=== PATIENT | female | born 1965 | race American Indian/Alaskan Native ===

== ENCOUNTER 2016-06-30 18:23 | Emergency (ER) | payer MEDICAID ==
--- NOTE | 2016-06-30 22:28 | Emergency Department Report ---
HPI - General Chief Complaint: Skin/Abscess/Foreign Body Time Seen by Provider: 06/30/16 22:21 - HPI HPI: 50-year-old female presents today stating she has a drain that needs to be removed. Patient states that she was in [place] last month when she had a abscess of right perianal region. Patient was seen by Dr. Kingsley Schaefer at [place], [place] and the abscess was incised and drained was put in. Positive for history of abscesses. Denies any drainage or bleeding at this time. Denies fever, chills, nausea, vomiting, chest pain, shortness of breath, abdominal pain. And has history of hypertension and has not been on her medication for 1 month. Patient needs refill Lisinopril/HCTZ 20-25mg 1 tab PO QDAY and Norvasc 10mg PO QDAY. ED Past Medical Hx - Past Medical History Hx Hypertension: Yes Hx Asthma: Yes Hx HIV: Yes Additional medical history: Genital herpes. depression - Surgical History Past Surgical History?: Yes Additional Surgical History: 1990 - Social History Smoking Status: Unknown if ever smoked Substance Use Type: None - Medications Home Medications: Home Medications Medication Instructions Recorded Confirmed Last Taken Type Pravastatin Sodium [Pravastatin] 10 mg PO QHS #30 tablet 04/08/13 05/31/1405/30 20:00 Rx Sertraline [Zoloft] 50 mg PO QDAY #30 tablet 04/08/13 05/31/14 05/30/14 10:00 Rx Efavirenz/Emtricitab/Tenofovir 1 each PO QDAY 05/07/14 05/31/14 05/30/14 20:00 History [Atripla Tablet] Podofilox [Condylox 0.5%] 1 applicatio TP BID #1 tub 05/07/14 05/31/14 05/30/14 20:00 Rx ALBUTEROL Inhaler [ProAir HFA 2 puff IH QID PRN #1 inhalation 05/31/14 Unknown Rx Inhaler] Azithromycin [Zithromax Z-RENZO] 250 mg PO DAILY #6 tablet 05/31/14 Unknown Rx Lisinopril/Hydrochlorothiazide 1 tab PO QDAY 05/31/14 05/31/14 05/30/14 09:00 History [Zestoretic 20-25 mg] Prednisone [Prednisone 5 mg (6-Day 5 mg PO .TAPER #1 tab.ds.pk 05/31/14 Unknown Rx Pack, 21 Tabs)] HYDROcodone/APAP 7.5-325 [[place] 1 each PO Q8HR PRN #15 tablet 03/10/15 Unknown Rx 7.5/325] Lisinopril/Hydrochlorothiazide 1 tab PO QDAY #30 tab 06/30/16 Unknown Rx [Zestoretic 20-25 mg] Naproxen [Naprosyn] 500 mg PO BID #20 tablet 06/30/16 Unknown Rx amLODIPine [Norvasc] 10 mg PO QDAY #30 tablet 06/30/16 Unknown Rx ED Review of Systems ROS: Stated complaint: NUMBNESS IN HAND FOOT SWOLLEN/BUTT PAIN Other details as noted in HPI Constitutional: denies: chills, fever, malaise Eyes: denies: eye pain ENT: denies: ear pain, throat pain, congestion Respiratory: denies: cough, shortness of breath, wheezing Cardiovascular: denies: chest pain, palpitations Endocrine: no symptoms reported Gastrointestinal: denies: abdominal pain, nausea, vomiting Neurological: denies: headache, weakness Physical Exam - Physical Exam Vital Signs: Vital Signs 06/30/16 18:43 Temperature 98.4 F Pulse Rate 97 H Blood Pressure 155/108 O2 Sat by Pulse 100 Oximetry Physical Exam: GENERAL: The patient is well-developed and well-nourished. Patient is in NAD. HEAD: Normocephalic. Atraumatic. CHEST/LUNGS: Clear to auscultation throughout. HEART/CARDIOVASCULAR: Regular rate and rhythm. ABDOMEN: Abdomen is soft, nontender. No guarding or rebound tenderness. BUTTOCKS: A drain noticed of right perianal region. No signs of infection. No erythema, tenderness to palpation. No drainage or bleeding noted. EXTREMITIES: Peripheral pulses intact. Capillary refill less than 2 seconds. NEURO: Alert and oriented x 3. Normal gait. ED Course Vital Signs 06/30/16 18:43 Temperature 98.4 F Pulse Rate 97 H Blood Pressure 155/108 O2 Sat by Pulse 100 Oximetry ED Medical Decision Making - Lab Data Vital Signs 06/30/16 06/30/16 18:43 22:37 Temperature 98.4 F 98.3 F Pulse Rate 97 H 88 Respiratory 18 Rate Blood Pressure 155/108 Blood Pressure 148/99 [Right] O2 Sat by Pulse 100 96 Oximetry - Medical Decision Making 50-year-old female presents today for a drain removal and blood pressure medication refill. Explained to patient that she needs follow-up with a surgeon to have the drain removed. Patient expressed understanding and a referral was provided. Patient is in no acute distress at this time. She will be discharged home and is encouraged to follow up with a primary care provider. She will be sent home on Norvasc, Zestoretic and naproxen and is encouraged to return to the emergency room for any worsening symptoms. Critical care attestation.: If time is entered above; I have spent that time in minutes in the direct care of this critically ill patient, excluding procedure time. ED Disposition Clinical Impression: Encounter for change or removal of drains HTN (hypertension) Qualifiers: Hypertension type: essential hypertension Qualified Code(s): I10 - Essential ( primary) hypertension Disposition: DISCHARGED TO HOME OR SELFCARE Is pt being admited?: No Does the pt Need Aspirin: No Condition: Stable Instructions: Hypertension (ED) Additional Instructions: Follow with primary care provider and surgeon. Return to the emergency department if symptoms worsen. Prescriptions: amLODIPine [Norvasc] 10 mg PO QDAY #30 tablet Lisinopril/Hydrochlorothiazide [Zestoretic 20-25 mg] 1 tab PO QDAY #30 tab Naproxen [Naprosyn] 500 mg PO BID #20 tablet Referrals: JASBIR SHAH III, APRN-JUNI [Primary Care Provider] - 3-5 Days JOSE RAMON DUMONT MD [Staff Physician] - 3-5 Days Forms: Work/School Release Form(ED) Time of Disposition: 22:34
[2016-06-30 22:38] VITALS: BP 148/99
== END 2016-06-30 22:50 | disposition home or self-care (01) ==
LOC: ED 18:23
DX: Z76.0 Encounter for issue of repeat prescription (principal); I10 Essential (primary) hypertension; J45.909 Unspecified asthma, uncomplicated; Z21 Asymptomatic human immunodeficiency virus [HIV] infection status
CPT/HCPCS: 99282

== ENCOUNTER 2016-10-04 23:26 | Emergency (ER) | payer MEDICAID ==
[2016-10-05 00:45] VITALS: BP 152/95
== END 2016-10-05 04:38 | disposition left against medical advice (07) ==
LOC: ED 23:26
DX: N76.0 Acute vaginitis (principal); Z53.21 Procedure and treatment not carried out due to patient leaving prior to being seen by health care provider

== ENCOUNTER 2016-10-05 10:58 | Emergency (ER) | payer MEDICAID ==
[2016-10-05 11:55] VITALS: BP 155/103
--- NOTE | 2016-10-05 12:48 | Emergency Department Report ---
- General Chief complaint: Skin/Abscess/Foreign Body Stated complaint: BOIL Time Seen by Provider: 10/05/16 12:25 Source: patient Mode of arrival: Ambulatory Limitations: No Limitations - History of Present Illness Initial comments: 50-year-old female past medical history hypertension asthma hyperlipidemia presents with complaint of 3 days of right-sided vaginal pain and swelling. Patient denies any fevers chills no nausea no vomiting no dysuria. Patient states that she has had Bartholin's and vaginal abscesses in the past. Patient visibly indicating that she has pain in her groin by pointing at her groin. MD complaint: abscess/boil Onset/Timin -: days(s) Tetanus Up to Date: no Location: genitals Severity: moderate Severity scale (0 -10): 5 Quality: aching Consistency: constant Improves with: none Worsens with: none Context: none - Related Data Home Medications Medication Instructions Recorded Confirmed Last Taken Efavirenz/Emtricitab/Tenofovir 1 each PO QDAY 05/07/14 05/31/14 05/30/14 20:00 [Atripla Tablet] Lisinopril/Hydrochlorothiazide 1 tab PO QDAY 05/31/14 05/31/14 05/30/14 09:00 [Zestoretic 20-25 mg] Previous Rx's Medication Instructions Recorded Last Taken Type Pravastatin Sodium [Pravastatin] 10 mg PO QHS #30 tablet 04/08/13 05/30/14 20: 00 Rx Sertraline [Zoloft] 50 mg PO QDAY #30 tablet 04/08/13 05/30/14 10:00 Rx Podofilox [Condylox 0.5%] 1 applicatio TP BID #1 tub 05/07/14 05/30/14 20:00 Rx ALBUTEROL Inhaler [ProAir HFA 2 puff IH QID PRN #1 inhalation 05/31/14 Unknown Rx Inhaler] Azithromycin [Zithromax Z-RENZO] 250 mg PO DAILY #6 tablet 05/31/14 Unknown Rx Prednisone [Prednisone 5 mg (6-Day 5 mg PO .TAPER #1 tab.ds.pk 05/31/14 Unknown Rx Pack, 21 Tabs)] HYDROcodone/APAP 7.5-325 [[place] 1 each PO Q8HR PRN #15 tablet 03/10/15 Unknown Rx 7.5/325] Lisinopril/Hydrochlorothiazide 1 tab PO QDAY #30 tab 06/30/16 Unknown Rx [Zestoretic 20-25 mg] Naproxen [Naprosyn] 500 mg PO BID #20 tablet 06/30/16 Unknown Rx amLODIPine [Norvasc] 10 mg PO QDAY #30 tablet 06/30/16 Unknown Rx Cephalexin [Keflex] 500 mg PO BID #14 capsule 10/05/16 Unknown Rx Naproxen [Naprosyn TAB] 500 mg PO BID PRN #25 tablet 10/05/16 Unknown Rx Sulfamethoxazole/Trimethoprim 1 each PO BID #14 tablet 10/05/16 Unknown Rx [Bactrim DS TAB] Allergies Allergy/AdvReac Type Severity Reaction Status Date / Time No Known Allergies Allergy Verified 10/05/16 11:49 Abscess Boil HPI - HPI Chief Complaint: Skin/Abscess/Foreign Body Stated Complaint: BOIL Time Seen by Provider: 10/05/16 12:25 Home Medications: Home Medications Medication Instructions Recorded Confirmed Last Taken Efavirenz/Emtricitab/Tenofovir 1 each PO QDAY 05/07/14 05/31/14 05/30/14 20:00 [Atripla Tablet] Lisinopril/Hydrochlorothiazide 1 tab PO QDAY 05/31/14 05/31/14 05/30/14 09:00 [Zestoretic 20-25 mg] Previous Rx's Medication Instructions Recorded Last Taken Type Pravastatin Sodium [Pravastatin] 10 mg PO QHS #30 tablet 04/08/13 05/30/14 20: 00 Rx Sertraline [Zoloft] 50 mg PO QDAY #30 tablet 04/08/13 05/30/14 10:00 Rx Podofilox [Condylox 0.5%] 1 applicatio TP BID #1 tub 05/07/14 05/30/14 20:00 Rx ALBUTEROL Inhaler [ProAir HFA 2 puff IH QID PRN #1 inhalation 05/31/14 Unknown Rx Inhaler] Azithromycin [Zithromax Z-RENZO] 250 mg PO DAILY #6 tablet 05/31/14 Unknown Rx Prednisone [Prednisone 5 mg (6-Day 5 mg PO .TAPER #1 tab.ds.pk 05/31/14 Unknown Rx Pack, 21 Tabs)] HYDROcodone/APAP 7.5-325 [[place] 1 each PO Q8HR PRN #15 tablet 03/10/15 Unknown Rx 7.5/325] Lisinopril/Hydrochlorothiazide 1 tab PO QDAY #30 tab 06/30/16 Unknown Rx [Zestoretic 20-25 mg] Naproxen [Naprosyn] 500 mg PO BID #20 tablet 06/30/16 Unknown Rx amLODIPine [Norvasc] 10 mg PO QDAY #30 tablet 06/30/16 Unknown Rx Cephalexin [Keflex] 500 mg PO BID #14 capsule 10/05/16 Unknown Rx Naproxen [Naprosyn TAB] 500 mg PO BID PRN #25 tablet 10/05/16 Unknown Rx Sulfamethoxazole/Trimethoprim 1 each PO BID #14 tablet 10/05/16 Unknown Rx [Bactrim DS TAB] Allergies/Adverse Reactions: Allergies Allergy/AdvReac Type Severity Reaction Status Date / Time No Known Allergies Allergy Verified 10/05/16 11:49 ED Review of Systems ROS: Stated complaint: BOIL Other details as noted in HPI Constitutional: denies: chills, fever Eyes: denies: eye pain, eye discharge, vision change ENT: denies: ear pain, throat pain Respiratory: denies: cough, shortness of breath, wheezing Cardiovascular: denies: chest pain, palpitations Endocrine: no symptoms reported Gastrointestinal: denies: abdominal pain, nausea, diarrhea Genitourinary: other (right labial abscess). denies: urgency, dysuria, discharge Musculoskeletal: denies: back pain, joint swelling, arthralgia Skin: denies: rash, lesions Neurological: denies: headache, weakness, paresthesias Psychiatric: denies: anxiety, depression Hematological/Lymphatic: denies: easy bleeding, easy bruising ED Past Medical Hx - Past Medical History Hx Hypertension: Yes Hx Asthma: Yes Hx HIV: Yes Additional medical history: Genital herpes. depression. HIGH CHOLESTEROL - Surgical History Additional Surgical History: 1990. "SURGERIES FOR BOILS" - Social History Smoking Status: Current Every Day Smoker Substance Use Type: Prescribed - Medications Home Medications: Home Medications Medication Instructions Recorded Confirmed Last Taken Type Pravastatin Sodium [Pravastatin] 10 mg PO QHS #30 tablet 04/08/13 05/31/1405/30 20:00 Rx Sertraline [Zoloft] 50 mg PO QDAY #30 tablet 04/08/13 05/31/14 05/30/14 10:00 Rx Efavirenz/Emtricitab/Tenofovir 1 each PO QDAY 05/07/14 05/31/14 05/30/14 20:00 History [Atripla Tablet] Podofilox [Condylox 0.5%] 1 applicatio TP BID #1 tub 05/07/14 05/31/14 05/30/14 20:00 Rx ALBUTEROL Inhaler [ProAir HFA 2 puff IH QID PRN #1 inhalation 05/31/14 Unknown Rx Inhaler] Azithromycin [Zithromax Z-RENZO] 250 mg PO DAILY #6 tablet 05/31/14 Unknown Rx Lisinopril/Hydrochlorothiazide 1 tab PO QDAY 05/31/14 05/31/14 05/30/14 09:00 History [Zestoretic 20-25 mg] Prednisone [Prednisone 5 mg (6-Day 5 mg PO .TAPER #1 tab.ds.pk 05/31/14 Unknown Rx Pack, 21 Tabs)] HYDROcodone/APAP 7.5-325 [[place] 1 each PO Q8HR PRN #15 tablet 03/10/15 Unknown Rx 7.5/325] Lisinopril/Hydrochlorothiazide 1 tab PO QDAY #30 tab 06/30/16 Unknown Rx [Zestoretic 20-25 mg] Naproxen [Naprosyn] 500 mg PO BID #20 tablet 06/30/16 Unknown Rx amLODIPine [Norvasc] 10 mg PO QDAY #30 tablet 06/30/16 Unknown Rx Cephalexin [Keflex] 500 mg PO BID #14 capsule 10/05/16 Unknown Rx Naproxen [Naprosyn TAB] 500 mg PO BID PRN #25 tablet 10/05/16 Unknown Rx Sulfamethoxazole/Trimethoprim 1 each PO BID #14 tablet 10/05/16 Unknown Rx [Bactrim DS TAB] ED Physical Exam - General Limitations: No Limitations General appearance: alert, in no apparent distress - Head Head exam: Present: atraumatic, normocephalic - Eye Eye exam: Present: normal appearance, PERRL, EOMI - ENT ENT exam: Present: mucous membranes moist - Neck Neck exam: Present: normal inspection - Respiratory Respiratory exam: Present: normal lung sounds bilaterally. Absent: respiratory distress - Cardiovascular Cardiovascular Exam: Present: regular rate, normal rhythm. Absent: systolic murmur, diastolic murmur, rubs, gallop - GI/Abdominal GI/Abdominal exam: Present: soft, normal bowel sounds - External exam: Present: swelling (visible right labial abscess on a external inspection) Speculum exam: Present: normal speculum exam - Extremities Exam Extremities exam: Present: normal inspection - Back Exam Back exam: Present: normal inspection - Neurological Exam Neurological exam: Present: alert, oriented X3 - Psychiatric Psychiatric exam: Present: normal affect, normal mood - Skin Skin exam: Present: warm, dry, intact, normal color. Absent: rash ED Course Vital Signs 10/05/16 11:53 Temperature 97.8 F Pulse Rate 93 H Respiratory 18 Rate Blood Pressure 155/103 O2 Sat by Pulse 96 Oximetry ED Medical Decision Making - Medical Decision Making A/P: Right side vaginal/labial abscess 1-immediately after I began assessing the patient patient out right stated that she is not interested in incision or drainage if I think it is an abscess. Patient stated that she did not want to have a pelvic exam done either. I offered the patient to be seen by a female clinical provider and patient stated that it did not matter to her, she states she want sto f/u with her private [employer]. Pt only allowing me to do an external inspection. I had a female technology applications teacher at bedside (kashif) present during this interaction and discussion with he patient. Pt has a golf ball sized mass on right external labial region to the right of vaginal orifice w/ some surrounding erythema, has appearance of abscess w/ cellulitis 2-I explained to the patient that the treatment for an abscess is incision and drainage. The patient reiterated that she knows this but is unwilling to do an incision and drainage, only interested in antibiotics and pain medicine. Patient states that she will call for a follow-up appointment with her [employer]HOLE BU[employer]DER this week. I explained to the patient that while I can provide her with antibiotics and anti-inflammatories that an abscess with surrounding cellulitis and spread to further tissues and cause damage to her reproductive tissues and potentially can lead to sepsis and . Patient stated that she understood this but is unwilling to allow me to perform incision and drainage on her abscess. Patient was awake alert and oriented 3 when I discussed this with her. Nurse present and aware for AMA conversation 3-Bactrim and Keflex twice a day 7 days. Naproxen when necessary for pain 4-I provided [employer] referral information on patient's discharge paperwork 5- patient signed out AGAINST MEDICAL ADVICE Critical care attestation.: If time is entered above; I have spent that time in minutes in the direct care of this critically ill patient, excluding procedure time. ED Disposition Clinical Impression: Abscess of vagina Disposition: LEFT AGAINST MEDICAL ADVICE Is pt being admited?: No Does the pt Need Aspirin: No Condition: Stable Instructions: Abscess (ED), Against Medical Advice (ED) Prescriptions: Cephalexin [Keflex] 500 mg PO BID #14 capsule Naproxen [Naprosyn TAB] 500 mg PO BID PRN #25 tablet PRN Reason: Pain Sulfamethoxazole/Trimethoprim [Bactrim DS TAB] 1 each PO BID #14 tablet Referrals: REX ALEXANDRE MD [Staff Physician] - 3-5 Days [facility] [Provider Group] - 3-5 Days Forms: Work/School Release Form(ED), AMA Form Time of Disposition: 12:57
== END 2016-10-05 13:11 | disposition left against medical advice (07) ==
LOC: ED 10:58
DX: N76.0 Acute vaginitis (principal); I10 Essential (primary) hypertension; J45.909 Unspecified asthma, uncomplicated; F17.200 Nicotine dependence, unspecified, uncomplicated
CPT/HCPCS: 99282

== ENCOUNTER 2017-06-18 00:28 | Emergency (ER) | payer MEDICAID ==
[2017-06-18 00:40] VITALS: BP 131/89
[2017-06-18] MEDS ORDERED: BENADRYL PO ONE (04:11)
[2017-06-18] MEDS ORDERED: DECADRON IM ONE (04:11)
--- NOTE | 2017-06-18 04:21 | Emergency Department Report ---
ED Allergic Reaction HPI - General Chief complaint: Extremity Injury, Upper Stated complaint: BODY ACHE Time Seen by Provider: 06/18/17 03:39 Source: patient Mode of arrival: Ambulatory Limitations: No Limitations - History of Present Illness Initial Comments: This is a 51 y.o. female presents with rash under right breast and itching all over from pain shot 6 days ago. Patient reports going to pain management Monday and receiving a pain shot in right clavicle area at [facility] management clinic [facility]. States she was sleep when they did it and not sure what medication was given. The next day she began to itch and noticed bruising under right breast. States the shots are for nerve damage in right hand but they are treating different areas as well. Denies difficulty swallowing, SOB, chest pain , and swelling. MD Complaint: allergic reaction -: Gradual Exposure: medication (unknown medication given at pain management) Symptoms: rash (rash under right breast), itching (generalized itching). denies : facial swelling, lip swelling, difficulty swallowing, difficulty breathing, orolingual swelling, hoarseness, syncopy, dizziness, nausea, vomiting, other, abdominal pain Severity: mild Treatment Prior to Arrival: none Previous Allergy History: none - Related Data Home Medications Medication Instructions Recorded Confirmed Last Taken Efavirenz/Emtricitab/Tenofovir 1 each PO QDAY 05/07/14 05/31/14 05/30/14 20:00 [Atripla Tablet] Lisinopril/Hydrochlorothiazide 1 tab PO QDAY 05/31/14 05/31/14 05/30/14 09:00 [Zestoretic 20-25 mg] Previous Rx's Medication Instructions Recorded Last Taken Type Pravastatin Sodium [Pravastatin] 10 mg PO QHS #30 tablet 04/08/13 05/30/14 20: 00 Rx Sertraline [Zoloft] 50 mg PO QDAY #30 tablet 04/08/13 05/30/14 10:00 Rx Podofilox [Condylox 0.5%] 1 applicatio TP BID #1 tub 05/07/14 05/30/14 20:00 Rx ALBUTEROL Inhaler [ProAir HFA 2 puff IH QID PRN #1 inhalation 05/31/14 Unknown Rx Inhaler] Azithromycin [Zithromax Z-RENZO] 250 mg PO DAILY #6 tablet 05/31/14 Unknown Rx Prednisone [Prednisone 5 mg (6-Day 5 mg PO .TAPER #1 tab.ds.pk 05/31/14 Unknown Rx Pack, 21 Tabs)] HYDROcodone/APAP 7.5-325 [[place] 1 each PO Q8HR PRN #15 tablet 03/10/15 Unknown Rx 7.5/325] Lisinopril/Hydrochlorothiazide 1 tab PO QDAY #30 tab 06/30/16 Unknown Rx [Zestoretic 20-25 mg] Naproxen [Naprosyn] 500 mg PO BID #20 tablet 06/30/16 Unknown Rx amLODIPine [Norvasc] 10 mg PO QDAY #30 tablet 06/30/16 Unknown Rx Cephalexin [Keflex] 500 mg PO BID #14 capsule 10/05/16 Unknown Rx Naproxen [Naprosyn TAB] 500 mg PO BID PRN #25 tablet 10/05/16 Unknown Rx Sulfamethoxazole/Trimethoprim 1 each PO BID #14 tablet 10/05/16 Unknown Rx [Bactrim DS TAB] Metoclopramide HCl [Reglan TAB] 5 mg PO TIDAC #15 tablet 06/18/17 Unknown Rx Prednisone [predniSONE 5 mg (6-Day 5 mg PO .TAPER #1 tab.ds.pk 06/18/17 Unknown Rx Pack, 21 Tabs)] Allergies Allergy/AdvReac Type Severity Reaction Status Date / Time No Known Allergies Allergy Verified 03/30/17 09:15 ED Review of Systems ROS: Stated complaint: BODY ACHE Other details as noted in HPI Constitutional: denies: chills, fever Respiratory: denies: cough, shortness of breath, wheezing Cardiovascular: denies: chest pain, palpitations Gastrointestinal: denies: abdominal pain, nausea, diarrhea Skin: rash (under right breast) ED Past Medical Hx - Past Medical History Previous Medical History?: Yes Hx Hypertension: Yes Hx Asthma: Yes Hx HIV: Yes Additional medical history: Genital herpes. depression. HIGH CHOLESTEROL - Surgical History Past Surgical History?: Yes Additional Surgical History: 1990. "SURGERIES FOR BOILS" - Social History Smoking Status: Current Every Day Smoker Substance Use Type: None - Medications Home Medications: Home Medications Medication Instructions Recorded Confirmed Last Taken Type Pravastatin Sodium [Pravastatin] 10 mg PO QHS #30 tablet 04/08/13 05/31/1405/30 20:00 Rx Sertraline [Zoloft] 50 mg PO QDAY #30 tablet 04/08/13 05/31/14 05/30/14 10:00 Rx Efavirenz/Emtricitab/Tenofovir 1 each PO QDAY 05/07/14 05/31/14 05/30/14 20:00 History [Atripla Tablet] Podofilox [Condylox 0.5%] 1 applicatio TP BID #1 tub 05/07/14 05/31/14 05/30/14 20:00 Rx ALBUTEROL Inhaler [ProAir HFA 2 puff IH QID PRN #1 inhalation 05/31/14 Unknown Rx Inhaler] Azithromycin [Zithromax Z-RENZO] 250 mg PO DAILY #6 tablet 05/31/14 Unknown Rx Lisinopril/Hydrochlorothiazide 1 tab PO QDAY 05/31/14 05/31/14 05/30/14 09:00 History [Zestoretic 20-25 mg] Prednisone [Prednisone 5 mg (6-Day 5 mg PO .TAPER #1 tab.ds.pk 05/31/14 Unknown Rx Pack, 21 Tabs)] HYDROcodone/APAP 7.5-325 [[place] 1 each PO Q8HR PRN #15 tablet 03/10/15 Unknown Rx 7.5/325] Lisinopril/Hydrochlorothiazide 1 tab PO QDAY #30 tab 06/30/16 Unknown Rx [Zestoretic 20-25 mg] Naproxen [Naprosyn] 500 mg PO BID #20 tablet 06/30/16 Unknown Rx amLODIPine [Norvasc] 10 mg PO QDAY #30 tablet 06/30/16 Unknown Rx Cephalexin [Keflex] 500 mg PO BID #14 capsule 10/05/16 Unknown Rx Naproxen [Naprosyn TAB] 500 mg PO BID PRN #25 tablet 10/05/16 Unknown Rx Sulfamethoxazole/Trimethoprim 1 each PO BID #14 tablet 10/05/16 Unknown Rx [Bactrim DS TAB] Metoclopramide HCl [Reglan TAB] 5 mg PO TIDAC #15 tablet 06/18/17 Unknown Rx Prednisone [predniSONE 5 mg (6-Day 5 mg PO .TAPER #1 tab.ds.pk 06/18/17 Unknown Rx Pack, 21 Tabs)] ED Physical Exam - General Limitations: No Limitations General appearance: alert, in no apparent distress - ENT ENT exam: Present: normal orophraynx, mucous membranes moist, TM's normal bilaterally, normal external ear exam - Respiratory Respiratory exam: Present: normal lung sounds bilaterally. Absent: respiratory distress - Cardiovascular Cardiovascular Exam: Present: regular rate, normal rhythm. Absent: systolic murmur, diastolic murmur, rubs, gallop - Neurological Exam Neurological exam: Present: alert, oriented X3, normal gait - Skin Skin exam: Present: warm, dry, intact, normal color, urticaria (erythematous, macular rash under right breast). Absent: cyanosis, diaphoretic, erythema, vesicles, petechiae, pallor, abrasion, ecchymosis ED Course Vital Signs 06/18/17 00:33 Temperature 97.9 F Pulse Rate 102 H Respiratory 17 Rate Blood Pressure 131/89 O2 Sat by Pulse 98 Oximetry ED Medical Decision Making - Medical Decision Making This is a 51 y.o. female presents with rash under right breast and itching on back from pain shot. States she went to pain management on Monday and receive a pain shot around right clavicle area while under anesthesia for pain. The next day she began to itch and saw a rash under right breast. Given dexamethasone 8 mg IM in ER. Given benadryl 25 mg po once in ER. Discharged home on prednisone taper, reglan, continue benadryl. Follow up with PCP and pain management. Critical care attestation.: If time is entered above; I have spent that time in minutes in the direct care of this critically ill patient, excluding procedure time. ED Disposition Clinical Impression: Allergic reaction caused by a drug Qualifiers: Encounter type: initial encounter Qualified Code(s): T78.40XA - Allergy, unspecified, initial encounter Disposition: - TO HOME OR SELFCARE Is pt being admited?: No Does the pt Need Aspirin: No Condition: Stable Instructions: Allergies (ED), Urticaria (ED) Additional Instructions: Continue taking benadryl for itching. Follow up with Primary Care Provider. Return to Pain Management in 24-48 hours. Prescriptions: Metoclopramide HCl [Reglan TAB] 5 mg PO TIDAC #15 tablet Prednisone [predniSONE 5 mg (6-Day Pack, 21 Tabs)] 5 mg PO .TAPER #1 tab.ds.pk Referrals: [facility] [Outside] - 3-5 Days [facility] [Outside] - 3-5 Days Time of Disposition: 05:37 Print Language: WOLOF
== END 2017-06-18 05:44 | disposition home or self-care (01) ==
LOC: ED 00:28
DX: T78.40XA Allergy, unspecified, initial encounter (principal); I10 Essential (primary) hypertension; J45.909 Unspecified asthma, uncomplicated; F32.9 Major depressive disorder, single episode, unspecified; E78.00 Pure hypercholesterolemia, unspecified; F17.200 Nicotine dependence, unspecified, uncomplicated; Z21 Asymptomatic human immunodeficiency virus [HIV] infection status
CPT/HCPCS: 96372; 99282; J1100

== ENCOUNTER 2017-06-22 17:13 | Emergency (ER) | payer MEDICAID ==
[2017-06-22] MEDS ORDERED: TYLENOL #3 PO ONE (20:36)
[2017-06-22] MEDS ORDERED: CATAPRES PO ONE (20:51)
[2017-06-22 21:08] LABS: Hematocrit 38.1 % (30.3-42.9); Hemoglobin 12.8 gm/dl (10.1-14.3); Mean Corpuscular HGB Conc 34 % (30-34); Mean Corpuscular Hemoglobin 31 pg (28-32); Mean Corpuscular Volume 93 fl (79-97); Platelet Count 212 K/mm3 (140-440); Red Blood Count 4.09 M/mm3 (3.65-5.03); Red Cell Distribution Width 14.1 % (13.2-15.2)
[2017-06-22 21:29] LABS: Alanine Aminotransferase 38 units/L (7-56); Albumin 3.9 g/dL (3.9-5); BUN/Creatinine Ratio 42; Blood Urea Nitrogen 25 mg/dL (7-17); Calcium 9.1 mg/dL (8.4-10.2); Hemolysis Index 10
[2017-06-22] MEDS ORDERED: ZOVIRAX PO ONE (21:31)
--- NOTE | 2017-06-22 21:31 | Emergency Department Report ---
- General Chief complaint: Skin Rash Stated complaint: SHINGLES Time Seen by Provider: 06/22/17 19:56 Source: patient Mode of arrival: Ambulatory Limitations: No Limitations - History of Present Illness Initial comments: This is a 51-year-old female nontoxic, well nourished in appearance, no acute signs of distress presents to the ED with c/o of right-sided back rash x1 day. Patient describes rash as pain. Patient stated has history of diagnosed shingles to right breast dermatology. Patient stated this is the same symptoms that she developed but now on the right dermatology back region. Patient denies any chest pain, shortness of breath, fever, chills, nausea, vomiting, headache or stiff neck. Patient denies any itching or swelling. Patient denies any allergies. Past medical history includes HIV, hypertension, and asthma. Patient stated her last CD4 count was above 200. Patient stated she is out of her current medications are blood pressure that she currently takes amlodipine daily 10 mg and lisinopril/hydrochlorothiazide 20-25 mg daily. MD complaint: rash -: days(s) (1) Location: back Severity: mild Severity scale (0 -10): 8 Quality: aching Consistency: constant Improves with: none Worsens with: none Context: none Associated symptoms: denies other symptoms Treatments Prior to Arrival: none - Related Data Home Medications Medication Instructions Recorded Confirmed Last Taken Efavirenz/Emtricitab/Tenofovir 1 each PO QDAY 05/07/14 05/31/14 05/30/14 20:00 [Atripla Tablet] Lisinopril/Hydrochlorothiazide 1 tab PO QDAY 05/31/14 05/31/14 05/30/14 09:00 [Zestoretic 20-25 mg] Previous Rx's Medication Instructions Recorded Last Taken Type Pravastatin Sodium [Pravastatin] 10 mg PO QHS #30 tablet 04/08/13 05/30/14 20: 00 Rx Sertraline [Zoloft] 50 mg PO QDAY #30 tablet 04/08/13 05/30/14 10:00 Rx Podofilox [Condylox 0.5%] 1 applicatio TP BID #1 tub 05/07/14 05/30/14 20:00 Rx ALBUTEROL Inhaler [ProAir HFA 2 puff IH QID PRN #1 inhalation 05/31/14 Unknown Rx Inhaler] Azithromycin [Zithromax Z-RENZO] 250 mg PO DAILY #6 tablet 05/31/14 Unknown Rx Prednisone [Prednisone 5 mg (6-Day 5 mg PO .TAPER #1 tab.ds.pk 05/31/14 Unknown Rx Pack, 21 Tabs)] HYDROcodone/APAP 7.5-325 [[place] 1 each PO Q8HR PRN #15 tablet 03/10/15 Unknown Rx 7.5/325] Lisinopril/Hydrochlorothiazide 1 tab PO QDAY #30 tab 06/30/16 Unknown Rx [Zestoretic 20-25 mg] Naproxen [Naprosyn] 500 mg PO BID #20 tablet 06/30/16 Unknown Rx amLODIPine [Norvasc] 10 mg PO QDAY #30 tablet 06/30/16 Unknown Rx Cephalexin [Keflex] 500 mg PO BID #14 capsule 10/05/16 Unknown Rx Naproxen [Naprosyn TAB] 500 mg PO BID PRN #25 tablet 10/05/16 Unknown Rx Sulfamethoxazole/Trimethoprim 1 each PO BID #14 tablet 10/05/16 Unknown Rx [Bactrim DS TAB] Metoclopramide HCl [Reglan TAB] 5 mg PO TIDAC #15 tablet 06/18/17 Unknown Rx Prednisone [predniSONE 5 mg (6-Day 5 mg PO .TAPER #1 tab.ds.pk 06/18/17 Unknown Rx Pack, 21 Tabs)] Acyclovir 800 mg PO 5XD 10 Days tablet 06/22/17 Unknown Rx Lisinopril/Hydrochlorothiazide 1 tab PO QDAY #30 tab 06/22/17 Unknown Rx [Zestoretic 20-25 mg] amLODIPine [Norvasc] 10 mg PO DAILY #30 tab 06/22/17 Unknown Rx traMADol [Ultram] 50 mg PO Q6HR PRN #12 tablet 06/22/17 Unknown Rx Allergies Allergy/AdvReac Type Severity Reaction Status Date / Time No Known Allergies Allergy Verified 03/30/17 09:15 Abscess Boil HPI - HPI Chief Complaint: Skin Rash Stated Complaint: SHINGLES Time Seen by Provider: 06/22/17 19:56 Home Medications: Home Medications Medication Instructions Recorded Confirmed Last Taken Efavirenz/Emtricitab/Tenofovir 1 each PO QDAY 05/07/14 05/31/14 05/30/14 20:00 [Atripla Tablet] Lisinopril/Hydrochlorothiazide 1 tab PO QDAY 05/31/14 05/31/14 05/30/14 09:00 [Zestoretic 20-25 mg] Previous Rx's Medication Instructions Recorded Last Taken Type Pravastatin Sodium [Pravastatin] 10 mg PO QHS #30 tablet 04/08/13 05/30/14 20: 00 Rx Sertraline [Zoloft] 50 mg PO QDAY #30 tablet 04/08/13 05/30/14 10:00 Rx Podofilox [Condylox 0.5%] 1 applicatio TP BID #1 tub 05/07/14 05/30/14 20:00 Rx ALBUTEROL Inhaler [ProAir HFA 2 puff IH QID PRN #1 inhalation 05/31/14 Unknown Rx Inhaler] Azithromycin [Zithromax Z-RENZO] 250 mg PO DAILY #6 tablet 05/31/14 Unknown Rx Prednisone [Prednisone 5 mg (6-Day 5 mg PO .TAPER #1 tab.ds.pk 05/31/14 Unknown Rx Pack, 21 Tabs)] HYDROcodone/APAP 7.5-325 [[place] 1 each PO Q8HR PRN #15 tablet 03/10/15 Unknown Rx 7.5/325] Lisinopril/Hydrochlorothiazide 1 tab PO QDAY #30 tab 06/30/16 Unknown Rx [Zestoretic 20-25 mg] Naproxen [Naprosyn] 500 mg PO BID #20 tablet 06/30/16 Unknown Rx amLODIPine [Norvasc] 10 mg PO QDAY #30 tablet 06/30/16 Unknown Rx Cephalexin [Keflex] 500 mg PO BID #14 capsule 10/05/16 Unknown Rx Naproxen [Naprosyn TAB] 500 mg PO BID PRN #25 tablet 10/05/16 Unknown Rx Sulfamethoxazole/Trimethoprim 1 each PO BID #14 tablet 10/05/16 Unknown Rx [Bactrim DS TAB] Metoclopramide HCl [Reglan TAB] 5 mg PO TIDAC #15 tablet 06/18/17 Unknown Rx Prednisone [predniSONE 5 mg (6-Day 5 mg PO .TAPER #1 tab.ds.pk 06/18/17 Unknown Rx Pack, 21 Tabs)] Acyclovir 800 mg PO 5XD 10 Days tablet 06/22/17 Unknown Rx Lisinopril/Hydrochlorothiazide 1 tab PO QDAY #30 tab 06/22/17 Unknown Rx [Zestoretic 20-25 mg] amLODIPine [Norvasc] 10 mg PO DAILY #30 tab 06/22/17 Unknown Rx traMADol [Ultram] 50 mg PO Q6HR PRN #12 tablet 06/22/17 Unknown Rx Allergies/Adverse Reactions: Allergies Allergy/AdvReac Type Severity Reaction Status Date / Time No Known Allergies Allergy Verified 03/30/17 09:15 ED Review of Systems ROS: Stated complaint: SHINGLES Other details as noted in HPI Constitutional: denies: chills, fever Eyes: denies: eye pain, eye discharge, vision change ENT: denies: ear pain, throat pain Respiratory: denies: cough, shortness of breath, wheezing Cardiovascular: denies: chest pain, palpitations Endocrine: no symptoms reported Gastrointestinal: denies: abdominal pain, nausea, diarrhea Genitourinary: denies: urgency, dysuria, discharge Musculoskeletal: denies: back pain, joint swelling, arthralgia Skin: rash. denies: lesions Neurological: denies: headache, weakness, paresthesias Psychiatric: denies: anxiety, depression Hematological/Lymphatic: denies: easy bleeding, easy bruising ED Past Medical Hx - Past Medical History Hx Hypertension: Yes Hx Asthma: Yes Hx HIV: Yes Additional medical history: Genital herpes. depression. HIGH CHOLESTEROL - Surgical History Additional Surgical History: 1990. "[facility] [employer] BO[employer]S" - Social History Smoking Status: Current Every Day Smoker Substance Use Type: None - Medications Home Medications: Home Medications Medication Instructions Recorded Confirmed Last Taken Type Pravastatin Sodium [Pravastatin] 10 mg PO QHS #30 tablet 04/08/13 05/31/1405/30 20:00 Rx Sertraline [Zoloft] 50 mg PO QDAY #30 tablet 04/08/13 05/31/14 05/30/14 10:00 Rx Efavirenz/Emtricitab/Tenofovir 1 each PO QDAY 05/07/14 05/31/14 05/30/14 20:00 History [Atripla Tablet] Podofilox [Condylox 0.5%] 1 applicatio TP BID #1 tub 05/07/14 05/31/14 05/30/14 20:00 Rx ALBUTEROL Inhaler [ProAir HFA 2 puff IH QID PRN #1 inhalation 05/31/14 Unknown Rx Inhaler] Azithromycin [Zithromax Z-RENZO] 250 mg PO DAILY #6 tablet 05/31/14 Unknown Rx Lisinopril/Hydrochlorothiazide 1 tab PO QDAY 05/31/14 05/31/14 05/30/14 09:00 History [Zestoretic 20-25 mg] Prednisone [Prednisone 5 mg (6-Day 5 mg PO .TAPER #1 tab.ds.pk 05/31/14 Unknown Rx Pack, 21 Tabs)] HYDROcodone/APAP 7.5-325 [[place] 1 each PO Q8HR PRN #15 tablet 03/10/15 Unknown Rx 7.5/325] Lisinopril/Hydrochlorothiazide 1 tab PO QDAY #30 tab 06/30/16 Unknown Rx [Zestoretic 20-25 mg] Naproxen [Naprosyn] 500 mg PO BID #20 tablet 06/30/16 Unknown Rx amLODIPine [Norvasc] 10 mg PO QDAY #30 tablet 06/30/16 Unknown Rx Cephalexin [Keflex] 500 mg PO BID #14 capsule 10/05/16 Unknown Rx Naproxen [Naprosyn TAB] 500 mg PO BID PRN #25 tablet 10/05/16 Unknown Rx Sulfamethoxazole/Trimethoprim 1 each PO BID #14 tablet 10/05/16 Unknown Rx [Bactrim DS TAB] Metoclopramide HCl [Reglan TAB] 5 mg PO TIDAC #15 tablet 06/18/17 Unknown Rx Prednisone [predniSONE 5 mg (6-Day 5 mg PO .TAPER #1 tab.ds.pk 06/18/17 Unknown Rx Pack, 21 Tabs)] Acyclovir 800 mg PO 5XD 10 Days tablet 06/22/17 Unknown Rx Lisinopril/Hydrochlorothiazide 1 tab PO QDAY #30 tab 06/22/17 Unknown Rx [Zestoretic 20-25 mg] amLODIPine [Norvasc] 10 mg PO DAILY #30 tab 06/22/17 Unknown Rx traMADol [Ultram] 50 mg PO Q6HR PRN #12 tablet 06/22/17 Unknown Rx ED Physical Exam - General Limitations: No Limitations General appearance: alert, in no apparent distress - Head Head exam: Present: atraumatic, normocephalic - Eye Eye exam: Present: normal appearance - ENT ENT exam: Present: mucous membranes moist - Neck Neck exam: Present: normal inspection - Respiratory Respiratory exam: Present: normal lung sounds bilaterally. Absent: respiratory distress - Cardiovascular Cardiovascular Exam: Present: regular rate, normal rhythm, normal heart sounds. Absent: tachycardia, irregular rhythm, systolic murmur, diastolic murmur, rubs , gallop - GI/Abdominal GI/Abdominal exam: Present: soft, normal bowel sounds. Absent: distended, tenderness, guarding, rebound, rigid, diminished bowel sounds - Rectal Rectal exam: Present: deferred - Extremities Exam Extremities exam: Present: normal inspection, full ROM, normal capillary refill. Absent: tenderness, pedal edema, joint swelling, calf tenderness - Back Exam Back exam: Present: normal inspection, full ROM. Absent: tenderness, CVA tenderness (R), CVA tenderness (L), muscle spasm, paraspinal tenderness, vertebral tenderness, rash noted - Expanded Back Exam Expanded 1 - 4 cm vesicular lesion with pustular and tenderness to touch to one right back dermatome region - Neurological Exam Neurological exam: Present: alert, oriented X3, CN II-XII intact, normal gait, reflexes normal - Psychiatric Psychiatric exam: Present: normal affect, normal mood - Skin Skin exam: Present: warm, dry, intact, normal color, rash ED Course Vital Signs 06/22/17 06/22/17 17:41 21:00 Temperature 97.9 F Pulse Rate 59 L 88 Respiratory 18 Rate Blood Pressure 183/119 178/120 O2 Sat by Pulse 97 Oximetry - Reevaluation(s) Reevaluation #1: 06/22/17 21:48 Patient is speaking in full sentences with no signs of distress noted. - Consultations Consultation #1: 06/22/17 21:49 Dr. cMintosh has been consulted about patient history, physical exam, and labs and agrees to the plan of care in the ED and discharge plan of care. ED Medical Decision Making - Lab Data Result diagrams: 06/22/17 20:49 - Medical Decision Making This is a 51-year-old female that presents with shingles. Patient is stable and was examined by me. Patient was discussed with Dr. Mcintosh. Patient stated does follow-up with doctor for HIV and stated CD4 count is above 200. PAtient denies Aids. Patient received a dose of Acyclovir 800 mg in the ED. Patient also received Tylenol No. 3 and Catapres 0.2 mg in the ED. Patient was instructed not to operate any machinery due to drowsiness of Tylenol 3 at discharge. Patient stated that she will have somebody drive the patient home. Patient vital signs witin normal limits prior to discharge. Patient stated she ran out of her b/p meds and I will refill meds. Patient was instructed to Follow-up with a primary care doctor in 3-5 days or if symptoms worsen and continue return to emergency room as soon as possible. At time time of discharge, the patient does not seem toxic or ill in appearance. No acute signs of distress noted. Patient agrees to discharge treatment plan of care. No further questions noted by the patient. Critical care attestation.: If time is entered above; I have spent that time in minutes in the direct care of this critically ill patient, excluding procedure time. ED Disposition Clinical Impression: Hypertension Qualifiers: Hypertension type: unspecified Qualified Code(s): I10 - Essential (primary) hypertension Shingles Qualifiers: Herpes zoster complications: without complications Qualified Code(s): B02.9 - Zoster without complications Disposition: DC-01 TO HOME OR SELFCARE Is pt being admited?: No Does the pt Need Aspirin: No Condition: Stable Instructions: Hypertension (ED), Herpes Zoster (ED), Acyclovir (By mouth) Additional Instructions: Follow-up with a primary care doctor in 3-5 days or if symptoms worsen and continue return to emergency room as soon as possible. Do not consume any alcohol while taking Acyclovir. Keep a daily diary of your blood pressure and present it to your primary care doctor. Do not operate any machinery while taking Ultram due to drowsiness. Prescriptions: Acyclovir 800 mg PO 5XD 10 Days tablet amLODIPine [Norvasc] 10 mg PO DAILY #30 tab Lisinopril/Hydrochlorothiazide [Zestoretic 20-25 mg] 1 tab PO QDAY #30 tab traMADol [Ultram] 50 mg PO Q6HR PRN #12 tablet PRN Reason: Pain Referrals: JASBIR SHAH III, RENDERER-BC [Primary Care Provider] - 3-5 Days LUKASZ FERRARI MD [Staff Physician] - 3-[address] [facility] [place] [Outside] - 3-5 Days [facility] [Outside] - 3-5 Days PRIMARY CAREMD [Referring] - 3-5 Days Forms: Work/School Release Form(ED)
[2017-06-22 21:36] LABS: Bilirubin,Direct < 0.2 mg/dL (0-0.2)
[2017-06-22 21:45] LABS: Eosinophils % (Manual) 0 % (0.0-4.3); RBC Morphology Normal; Total Cells Counted 100
[2017-06-22 22:09] VITALS: BP 151/94
== END 2017-06-22 22:42 | disposition home or self-care (01) ==
LOC: ED 17:13
DX: B02.9 Zoster without complications (principal); I10 Essential (primary) hypertension; J45.909 Unspecified asthma, uncomplicated; F17.200 Nicotine dependence, unspecified, uncomplicated
CPT/HCPCS: 36415; 80048; 80074; 85007; 85025